=== PATIENT | male | born 1965 | race Caucasian/White ===

== ENCOUNTER 2022-08-26 10:21 | Emergency (ER) | payer BC, OTHER ==
[~2022-08-26] VITALS: Ht 185.4 cm; Wt 103.0 kg
[2022-08-26] MEDS ORDERED: ONDANSETRON HCL INJ 2MG/ML 2ML 2 MG/ML VIAL IV STA (10:43)
[2022-08-26] MEDS ORDERED: SODIUM CHLORIDE 0.9% 500ML 500 ML IV ONE (10:45)
[2022-08-26 11:02] LABS: BASOPHILS % 0.5 % (0.0-1.0); EOSINOPHILS # (AUTO) 0.1 (0.0-0.4); EOSINOPHILS % 0.8 % (0.0-6.0); HEMATOCRIT 39.8 % (38.2-49.6); LYMPHOCYTES % 16.9 % (18.0-39.1); MEAN CORPUSCULAR HEMOGLOBIN 35.1 pg (28-32); MEAN CORPUSCULAR HGB CONC 37.7 g/dL (31-35); MEAN CORPUSCULAR VOLUME 93.2 fL (81-99); MONOCYTES # (AUTO) 0.4 (0.2-0.8); MONOCYTES % 6.9 % (4.4-11.3); NEUTROPHILS # (AUTO) 4.4 (2.1-6.9); NEUTROPHILS % 74.6 % (38.7-80.0); PLATELET COUNT 93 x10e3/uL (140-360); RED BLOOD COUNT 4.27 x10e6/uL (4.3-5.7); RED CELL DISTRIBUTION WIDTH 14.5 % (11.7-14.4)
[2022-08-26] MEDS ORDERED: SODIUM CHLORIDE 0.9% 500ML 500 ML ONE (11:26)
[2022-08-26] MEDS ORDERED: SODIUM CHLORIDE 0.9% 100 ML ONE (11:29)
[2022-08-26] MEDS ORDERED: IOPAMIDOL 370 MG/ML 100 ML INFUS..BTL INJ ONE (11:30)
[2022-08-26 11:40] LABS: INR 1.06; PROTHROMBIN TIME 14.4 seconds (11.9-14.5)
[2022-08-26 11:48] LABS: ALBUMIN 2.6 g/dL (3.5-5.0); ALBUMIN/GLOBULIN RATIO 0.6 (0.8-2.0); ANION GAP 24.2 mmol/L (8-16); CALCIUM 11.5 mg/dL (8.4-10.2); CREATININE, SERUM 8.36 mg/dL (0.72-1.25); MAGNESIUM 2.4 MG/DL (1.3-2.1); POTASSIUM 4.2 mmol/L (3.5-5.1)
[2022-08-26] MEDS ORDERED: Vancomycin IV 1 GM in SODIUM CHLORIDE 0.9% 250ML 250 ML IV ONE (12:00)
[2022-08-26] MEDS ORDERED: NOREPINEPHRINE 8 MG/D5W 250 ML 250 ML ONE (12:27)
[2022-08-26] MEDS ORDERED: NOREPINEPHRINE 8 MG/D5W 250 ML 250 ML IV SCH (12:30)
[2022-08-26] MEDS ORDERED: SODIUM CHLORIDE 0.9% 1000ML 1,000 ML IV STA (12:46)
[2022-08-26] MEDS ORDERED: SODIUM CHLORIDE 0.9% 1000ML 1,000 ML ONE (12:56)
[2022-08-26] MEDS: ALBUMIN 5% 250ML 250 ML IV SCH ×2 (12:59→13:54)
[2022-08-26] MEDS ORDERED: ALBUMIN 5% 0.05 GM/ML BTL IV ONE (13:00)
[2022-08-26 14:04] LABS: CLARITY,URINE SL CLOUDY (CLEAR); COLOR,URINE YELLOW (YELLOW); KETONES,URINE NEGATIVE (NEGATIVE); LEUKOCYTE ESTERASE ,URINE NEGATIVE (NEGATIVE); NITRITE,URINE NEGATIVE (NEGATIVE); PROTEIN,URINE DIPSTICK 1+ (NEGATIVE); URINE UROBILINOGEN 0.2 mg/dL (0.2 - 1)
[2022-08-26 14:32] LABS: BACTERIA,URINE MODERATE /HPF; EPITHELIAL CELLS,URINE RARE /LPF; WBC,URINE (MAN) 0-5 /HPF (0-5)
[2022-08-26 14:35] LABS: SALICYLATE < 5.0 mg/dL (0-30)
[2022-08-26 14:39] LABS: AMPHETAMINES SCREEN,URINE NEGATIVE (NEGATIVE); BENZODIAZEPINES SCREEN,URINE NEGATIVE (NEGATIVE); PHENCYCLIDINE SCREEN,URINE NEGATIVE (NEGATIVE)
[2022-08-26 15:40] VITALS: BP 92/61; PULSE 59; RESP 16; TEMP 96.9; O2SAT 97
== END 2022-08-26 14:30 | disposition other institution (70) ==
LOC: ER 10:32
DX: A41.9 Sepsis, unspecified organism (principal); N19 Unspecified kidney failure; K76.82 Hepatic encephalopathy; K75.9 Inflammatory liver disease, unspecified; I95.9 Hypotension, unspecified; Z20.822 Contact with and (suspected) exposure to COVID-19
CPT/HCPCS: 36415; 36555; 51700; 70450; 71260; 72125; 74177; 80053; 80307; 80320; 80329 ×2; 81001; 82140; 82550; 82948; 83605; 83690; 83735; 84484; 85025; 85610; 85730; 86850; 86900; 87040; 87086; 93005; 99284; C9113; J0692; J2405; J3370; J7030; J7040; J7050 ×2; P9045; Q9967; U0002